=== PATIENT | female | born 1965 | race Caucasian/White ===

== ENCOUNTER 2024-12-13 11:09 | Outpatient (AMB) | payer MEDICARE, MEDICAID, SELFPAY ==
--- NOTE | 2024-12-13 11:14 | MHC.OFFVIS ---
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 She has generalized tonic-clonic seizures, often preceded by an aura characterized by a feeling rosa to moving sand or double vision. Recently, her seizure frequency has increased, despite stable medication and therapy, occurring during sleep and occasionally while awake. No history of head injury or family history of epilepsy, and no history of drug abuse Surgical intervention in 1996 at [facility] resulted in a significant reduction in seizure frequency. A VNS device implanted in 1999, with the most recent replacement in 2018, further reduced her seizures. She manages her epilepsy with 200 mg of Lamotrigine in the morning and 400 mg at night, having tried several anticonvulsants in the past. She is also treated for insomnia with Zolpidem 10 mg at night, hypotension with Midodrine 5 mg, and hyperlipidemia with Atorvastatin 10 mg. Sleep apnea was diagnosed approximately ten years ago by a neurologist in [place]. Review of Systems Const Details: - Neurological: Reports seizures, aura prior to seizures, insomnia; denies headache. - Cardiovascular: Reports treated hypotension; denies chest pain, palpitations. - Respiratory: Denies dyspnea. - Gastrointestinal: Denies nausea. - Endocrine: Denies diabetes. - Sleep: Reports insomnia, diagnosed with sleep apnea. - Musculoskeletal: Denies weakness or gait disturbances. Physical Exam Neuro Other: Mental Status: Alert and oriented to person, place, and time. Normal attention. Normal spontaneous speech, fluency, and comprehension. No obvious issues with mood and memory. Affect is appropriate. Cranial Nerves: CN II: Visual faustin full to confrontation, visual acuity intact. CN III, IV, : Pupils equal, round, reactive to light and accommodation. Extraocular movements are normal. CN V: Facial sensation is normal. CN VII: Facial movements symmetrical. CN VIII: Hearing intact to bedside conversation is normal. CN IX, X: Palate elevates symmetrically. CN XI: Shoulder shrug and head turn symmetrical. CN XII: Tongue midline without atrophy or fasciculations. Motor: Bulk and tone normal in all extremities. No significant muscle weakness in arms and legs. No drift. Reflexes: Deep tendon reflexes 2+ and symmetric. Plantar response down-going bilaterally. Coordination: [id number] and aeka-[id number] testing normal. No dysmetria. Gait and Station: No obvious gait abnormality. No ataxia or instability. Extrapyramidal: Full facial expressions and blinking. No rigidity. Movements are appropriate with no tremor or abnormality. Speech: Normal; no dysarthria or tremor. Assessment & Plan Assessment & Plan (1) Epilepsy: Comment: Meds tried: Lamotrigine, Dilantin, phenobarbital, Depakote, Tegretal Epilepsy surgery in 1996 at [facility] VNS placed in [place] in 1999, last replaced in 2018 in [place], [place] Code(s): G40.909 - Epilepsy, unspecified, not intractable, without status epilepticus Category: Medical Qualifiers: Epilepsy type: other generalized Intractability: intractable Status epilepticus: without status epilepticus Qualified Code(s): G40.419 - Other generalized epilepsy and epileptic syndromes, intractable, without status epilepticus (2) Status post VNS (vagus nerve stimulator) placement: Code(s): Z96.89 - Presence of other specified functional implants Category: Surgical (3) Insomnia: Code(s): G47.00 - Insomnia, unspecified Category: Medical Qualifiers: Insomnia type: due to medical condition Qualified Code(s): G47.01 - Insomnia due to medical condition Plan Impression: 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 She had epilepsy surgery at [facility] and later VNS placement. Now seizures were relatively better controlled happening sporidically but not daily or weekly. VNS was checked and found to be working. Parameters adjusted. Rec: a: MRI brain WO b: EEG c: Lamotrigine 200mg one in am and two at night d: Zolpidem 10mg one at bedtime PRN e: Xcopri 50mg one at bedtime f: VNS was adjusted to more frequent stimulation, every 30 sec Orders: Orders MR head/brain w con Today G40.419 - Other generalized epilepsy and epileptic syndromes, intractable, without status epilepticus Complete Blood Count Auto Diff Today G40.419 - Other generalized epilepsy and epileptic syndromes, intractable, without status epilepticus Basic Metabolic Panel Today G40.419 - Other generalized epilepsy and epileptic syndromes, intractable, without status epilepticus Liver Panel Today G40.419 - Other generalized epilepsy and epileptic syndromes, intractable, without status epilepticus Lamotrigine Lamictal Today G40.419 - Other generalized epilepsy and epileptic syndromes, intractable, without status epilepticus EEG electroencephalogram Today G40.419 - Other generalized epilepsy and epileptic syndromes, intractable, without status epilepticus Erythrocyte Sedimentation Rate Today G40.419 - Other generalized epilepsy and epileptic syndromes, intractable, without status epilepticus Medications: New cenobamate (Xcopri) administer weeks 5 and 6 of therapy 50 mg PO ONCE 30 tabs 2RF 30 days lamotrigine ER 200 mg orally one in am and two at night; 270 tabs 0RF zolpidem 10 mg PO BEDTIME 90 tabs 0RF Insomnia Coding Level of Care Code New Pt Level 5 (56480) Diagnoses Other generalized epilepsy, intractable, without status epilepticus G40.419 Epilepsy type: other generalized Intractability: intractable Status epilepticus: without status epilepticus Status post VNS (vagus nerve stimulator) placement Z96.89 Insomnia due to medical condition G47.01 Insomnia type: due to medical condition
--- OUTSIDE RECORDS SUMMARY | 2024-12-13 12:46 | XMS_ITS | Clinical Summary ---
Author Organization [address] [facility] Address [address] [place] [phone] Phone Care Team Providers Care Blast Hole Driller Name Role Phone Eloise Huynha Primary Care Provider [phone] Allergies No known active allergies Medications ondansetron (ZOFRAN) 4 mg tablet TAKE 1 TABLET BY MOUTH THREE TIMES DAILY NEEDED *NEW PRESCRIPTION REQUEST* 270 tablet 11 11/19/19 25 Active atorvastatin (LIPITOR) 40 mg tablet TAKE 1 TABLET BY MOUTH EVERY DAY *NEW PRESCRIPTION REQUEST* 90 tablet 1 11/19/19 25 Active zolpidem (AMBIEN) 10 mg tablet Take 1 tablet (10 mg total) by mouth at bedtime as needed for sleep. Patient scheduling appointment with psychiatry will not refill the medication again refilling 1 more prescription for withdrawal Max Daily Amount: 10 mg 30 tablet 11/25/19 25 Active lamoTRIgine (LaMICtal) 200 mg tablet TAKE 1 TABLET BY MOUTH EVERY MORNING & TAKE 2 TABLETS EVERY NIGHT AT BEDTIME *NEW PRESCRIPTION REQUEST* 270 tablet 11 11/26/19 25 Active midodrine (PROAMATINE) 5 mg tablet Take 1 tablet (5 mg total) by mouth 3 (three) times a day before meals. 90 each 1 11/29/19 25 025 Active triamcinolone (KENALOG) 0.1 % ointment Apply topically 2 (two) times a day if needed for irritation or rash. 30 g 11/29/19 25 025 Active midodrine (PROAMATINE) 5 mg tablet Take 1 tablet (5 mg total) by mouth. 01/04/20 025 Discontinued(R eorder) lamoTRIgine (LaMICtal) 200 mg tablet Take 1 tablet in the morning and 2 tablets at night 90 tablet 1 07/23/19 025 Discontinued(R eorder) ondansetron (ZOFRAN) 4 mg tablet Take 1 tablet (4 mg total) by mouth. 08/26/19 025 Discontinued zolpidem (AMBIEN) 10 mg tablet Take 1 tablet (10 mg total) by mouth at bedtime as needed for sleep. Max Daily Amount: 10 mg 30 tablet 1 09/28/19 025 Discontinued(R eorder) amitriptyline (ELAVIL) 10 mg tablet Take 1 tablet (10 mg total) by mouth at bedtime. 30 each 09/28/19 025 Discontinued atorvastatin (LIPITOR) 40 mg tablet TAKE 1 TABLET(40 MG) BY MOUTH 1 TIME EACH DAY IN THE EVENING 30 tablet 3 10/05/19 025 Discontinued SUMAtriptan (IMITREX) 50 mg tablet Take 1 tablet (50 mg total) by mouth 1 (one) time if needed for migraine (may repeat x1) for up to 54 doses. May repeat dose once in 2 hours if no relief. Do not exceed 2 doses in 24 hours. 9 tablet 5 11/09/19 025 Discontinued lamoTRIgine (LaMICtal) 200 mg tablet Take 1 tablet in the morning and 2 tablets at night 90 tablet 1 11/16/19 025 Discontinued(R eorder) lamoTRIgine (LaMICtal) 200 mg tablet Take 1 tablet in the morning and 2 tablets at night 90 tablet 1 11/23/19 025 Discontinued SUMAtriptan (IMITREX) 50 mg tablet TAKE 1 TABLET BY MOUTH AT ONSET OF HEADACHE NEEDED. MAY REPEAT AFTER 2 HOURS IF NEEDED. MAX 2 DOSES IN 24 HOURS *NEW PRESCRIPTION REQUEST* 48 tablet 11/26/19 025 Discontinued amitriptyline (ELAVIL) 10 mg tablet TAKE 1 TABLET BY MOUTH EVERY NIGHT AT BEDTIME *NEW PRESCRIPTION REQUEST* 90 tablet 11 11/26/19 25 025 Discontinued Active Problems Problem Noted Date Diagnosed Date Migraine 11/25/2024 History of Clostridioides difficile colitis 07/12 HLD (hyperlipidemia) IBS (irritable bowel syndrome) Insomnia Low blood pressure [place] [place] [facility] [place] Encounters Date Type Department Care Team Description 11/28/2024 3:00 PM EDT [facility] [phone] Christopher Pink PA Other specified hypotension (Primary Dx); Mixed hyperlipidemia; [place]izure [place] [place] [facility] [place] Insomnia, unspecified type; Other migraine without status migrainosus, intractable 11/01/2024 Telephone [facility] [address] [phone] Ezio Dominguez MD 10/10/2024 Telephone Internal Medicine - [address] [phone] Brionna Huynh, 10/10/2024 Telephone Internal Medicine - [address] [phone] Brionna Huynh, 09/27/2024 10:00 AM EDT Consult [facility] [address] [phone] Ezio Dominguez MD Seizure [place] [place] [facility] [place] from Last 3 Months Surgical History Surgery Date Site/Laterality Comments VAGUS NERVE STIMULATOR INSERTION HYSTERECTOMY BRAIN SURGERY temperal lobectomy Medical History Medical History Date Comments HLD (hyperlipidemia) Seizure [place] [place] [facility] [place] Low blood pressure Nausea IBS (irritable bowel syndrome) Insomnia Family History Medical History Relation Name Comments Prostate cancer Father Relation Name Status Comments Father Social History Tobacco Use Types Packs/Day Years Used Date Smoking Tobacco: Every Day Cigarettes Smokeless Tobacco: Never Tobacco Cessation:Ready to Q uit: Not Asked; Counseling Given: Not Answered Comments No Sex and Gender Information Value Date Recorded Sex Assigned at Not on file Legal Sex Female 10:46 AM EST Gender Identity Not on file Sexual Orientation Not on file Obstetrics History Last Filed Vital Signs Vital Sign Reading Time Taken Comments Blood Pressure 98/50 11/28/2024 2:28 PM EDT Pulse 64 11/28/2024 2:28 PM EDT Temperature 36.2 C (97.2 F) 09/27/2024 9:56 AM EDT Respiratory Rate 16 11/28/2024 2:28 PM EDT Oxygen Saturation 95% 09/27/2024 9:56 AM EDT Inhaled Oxygen Concentration - - Weight 58.5 kg (129 lb) 11/28/2024 2:28 PM EDT Height 162.6 cm (5' 4 ) 09/27/2024 9:56 AM EDT Body Mass Index 22.14 09/27/2024 9:56 AM EDT Plan of Treatment Health Maintenance Due Date Last Done Comments Breast Cancer Screening 1965 DTaP,Tdap,and Td Vaccines (1 - Tdap) 09/21/1986 Hepatitis B Vaccines (1 of 3 - 19+ 3-dose series) 09/21/1986 Pneumococcal Vaccine: 50+ Ye ars (1 of 2 - PCV) 09/21/1986 Cervical Cancer Screening: P ap Smear 09/21/1988 Zoster Vaccines (1 of 2) 09/21/2017 Depression Screening 04/13/2024 Colorectal Cancer Screening: Colonoscopy 05/02/2024 HIV Screening 05/02/2024 Hepatitis C Screening 05/02/2024 Medicare Annual Wellness Visit 05/02/2024 Social Influencers of Health Screening 05/02/2024 COVID-19 Vaccine (1 - 2023-2 5 season) 2024 Influenza Vaccine (#1) 2024 Cholesterol Screening (Lipid Panel) 09/02/2029 09/02/2024 HIB Vaccines Aged Out No longer eligi ble based on patient's age to complete this topic HPV Vaccines Aged Out No longer eligi ble based on patient's age to complete this topic Hepatitis A Vaccines Aged Out No long er eligible based on patient's age to complete this topic IPV Vaccines Aged Out No longer eligi ble based on patient's age to complete this topic MMR Vaccines Aged Out No longer eligi ble based on patient's age to complete this topic Meningococcal ACWY Vaccine Aged Out N o longer eligible based on patient's age to complete this topic Meningococcal B Vaccine Aged Out No l onger eligible based on patient's age to complete this topic RSV Immunization Patients Un scot 20 months Aged Out No longer eligible b ased on patient's age to complete this topic Varicella Vaccines Aged Out No longer eligible based on patient's age to complete this topic Procedures Procedure Name Priority Date/Time Associated Diagnosis Comments CBC WITH AUTO DIFFERENTIAL Routine 09/27/2024 10:52 AM EDT Seizure ([facility]/HCC V24, CMS/HCC V28) LAMOTRIGINE LEVEL Routine 09/27/2024 10: 52 AM EDT Seizure ([facility]/HCC V24, [facility] V28) HEPATIC FUNCTION PANEL Routine 09/27/2024 10:52 AM EDT Seizure ([facility]/HCC V24, [facility] V28) CBC AND DIFFERENTIAL Routine 09/27/2024 10:52 AM EDT Seizure ([facility]/HCC V24, CMS/HCC V28) BUN Routine 09/27/2024 10:52 AM EDT Seizure ([facility]/HCC V24, CMS/HCC V28) CREATININE, SERUM Routine 09/27/2024 10: 52 AM EDT Seizure ([facility] V24, [facility] V28) LIPID PANEL WITH REFLEX TO DIRECT LDL Routine 09/02/2024 10:35 AM EDT Hyperlipidemia, unspecified hyperlipidemia type from Last 3 Months or Most Recently Relevant to Health Maintenance Results * (ABNORMAL) CBC auto differential (09/27/2024 10:52 AM EDT) [facility] Signature WBC 6.3 4.8 - 10.8 K/mcL LAB HEMETOLOGY METHOD 09/27/2024 2:06 PM EDT [facility] RBC 4.40 3.80 - 4.80 M/mcL LAB HEMETOLOGY METHOD 09/27/2024 2:06 PM EDT [facility] Hemoglobin 13.6 11.5 - 16.0 g/dL LAB HEMETOLOGY METHOD 09/27/2024 2:06 PM [facility] Hematocrit 42.9 35.0 - 47.0 % LAB HEMETOLOGY METHOD [facility]24 [facility] MCV 97.9 79.0 - 98.0 FL LAB HEMETOLOGY METHOD 09/27/2024 2:06 PM [facility] MCH 31.1 27.0 - 32.0 pcg LAB HEMETOLOGY METHOD 09/27/2024 2:06 PM [facility] MCHC 31.7(L) 32.0 - 37.0 g/dL LAB HEMETOLOGY METHOD 09/27/2024 2:06 PM [facility] RDW 12.9 11.0 - 15.0 % LAB HEMETOLOGY METHOD 09/27/2024 2:06 PM [facility] Platelets 215 130 - 400 K/mcL LAB HEMETOLOGY METHOD 09/27/2024 2:06 PM [facility] MPV 11.0 7.0 - 11.0 FL LAB HEMETOLOGY METHOD 09/27[facility]2024 [facility] NRBC 0.0 <1.0 % LAB HEMETOLOGY METHOD 09/27/2024 2:06 PM [facility] NRBC Absolute 0.00 <0.10 K/mcL LAB HEMETOLOGY METHOD 09/27[facility]2024 [facility] Neutrophils Relative 62.9 % LAB HEMETOLOGY METHOD 09/27/2024 2:06 PM [facility] Lymphocytes Relative 29.5 % LAB HEMETOLOGY METHOD 09/27/2024 2:06 PM EDT [facility] Monocytes Relative 6.0 % LAB HEMETOLOGY METHOD 09/27/2024 2:06 PM EDT [facility] Eosinophils Relative 0.6 % LAB HEMETOLOGY METHOD 09/27/2024 2:06 PM [facility] Basophils Relative 0.5 % LAB HEMETOLOGY METHOD 09/27[facility]2024 [facility] Immature Granulocytes Relative 0.5 % LAB HEMETOLOGY METHOD 09/27/2024 2:06 PM [facility] Neutrophils Absolute 3.97 1.50 - 7.00 K/mcL LAB HEMETOLOGY METHOD 09/27/2024 2:06 PM [facility] Lymphocytes Absolute 1.86 1.00 - 5.00 K/mcL LAB HEMETOLOGY METHOD 09/27/2024 2:06 PM [facility] Monocytes Absolute 0.38 0.20 - 1.00 K/mcL LAB HEMETOLOGY METHOD 09/27/2024 2:06 PM [facility] Eosinophils Absolute 0.04 0.00 - 0.50 K/mcL LAB HEMETOLOGY METHOD 09/27/2024 2:06 PM [facility] Basophils Absolute 0.03 0.00 - 0.20 K/mcL LAB HEMETOLOGY METHOD 09/27/2024 2:06 PM [facility] Immature Granulocytes Absolute 0.03 0.00 - 0.03 K/mcL LAB HEMETOLOGY METHOD 09/27/2024 2:06 PM [facility] Blood Venous blood specimen / Unknown Venipuncture / Unknown 09/27/2024 10:52 AM EDT 09/27/2024 10:52 AM EDT Ezio Dominguez MD LAB BLOOD ORDERABLES Fin al Result Performing Organization Address City/State/[facility] Co de Phone Number [facility] [address] [place] [address], * Creatinine (09/27/2024 10:52 AM EDT) Creatinine 0.88 0.50 - 1.10 mg/dL LAB CHEMISTRY METHOD 09/27/2024 2:52 PM EDT [facility] eGFR 77 >=60 mL/min/1. 73m2 LAB CHEMISTRY METHOD 09/27/2024 2:52 PM EDT [facility] Comment:Calculation based on the Chronic Kidney Disease Epidemiology Collaboration (CKD-EPI) equation refit without adjustment for race. Blood Venous blood specimen / Unknown Venipuncture / Unknown 09/27/2024 10:52 AM EDT 09/27/2024 10:52 AM EDT Ezio Dominguez MD LAB BLOOD ORDERABLES Fin al Result Performing Organization Address [facility] Co de Phone Number [facility] [address] [place] [address], * Lamotrigine level (09/27/2024 10:52 AM EDT) Lamotrigine (Lamictal) Level 13.5 2.0 - 15.0 ug/mL 09/30/2024 10:13 AM EDT [facility] Comment: Lamotrigine toxic level: >20 ug/mL The reference range is not well established. It may be as wide as 1 - 20 ug/mL. If applicable, any drug confirmation testing reported here was developed and the performance characteristics determined by [facility]. This confirmation testing has not been cleared or approved by the FDA. The laboratory is regulated under CLIA as qualified to perform high-complexity testing. This test is used for patient testing purposes. It should not be regarded as investigational or for research. Test performed at [facility], [address], [place] [address] Sandra Campos MD, PhD - Marine Mammal Trainer Blood Venous blood specimen / Unknown Venipuncture / Unknown 09/27/2024 10:52 AM EDT 09/27/2024 10:52 AM EDT Ezio Dominguez MD LAB BLOOD ORDERABLES Fin al Result [facility] [address] [place] [address] * BUN (09/27/2024 10:52 AM EDT) BUN 10 5 - 25 mg/dL LAB CHEMISTRY METHOD 09/27/2024 2:52 PM EDT [facility] Blood Venous blood specimen / Unknown Venipuncture / Unknown 09/27/2024 10:52 AM EDT 09/27/2024 10:52 AM EDT Ezio Dominguez MD LAB BLOOD ORDERABLES Fin al Result Performing Organization Address City/[facility]/ZIP Co de Phone Number [facility] [address] [place] [address], [place] [phone] * (ABNORMAL) Hepatic function panel (09/27/2024 10:52 AM EDT) Total Protein 7.3 6.0 - 8.0 g/dL LAB CHEMISTRY METHOD 09/27/2024 2:52 PM EDT [facility] Albumin 4.1 3.2 - 5.0 g/dL LAB CHEMISTRY METHOD 09/27/2024 2:52 PM EDT [facility] Total Bilirubin 0.5 0.0 - 1.4 mg/dL LAB CHEMISTRY METHOD 09/27/2024 2:52 PM EDT [facility] Bilirubin, Direct 0.2 0.0 - 0.3 mg/dL LAB CHEMISTRY METHOD 09/27/2024 2:52 PM EDT [facility] Bilirubin, Indirect 0.3 0.0 - 1.1 mg/dL LAB CHEMISTRY METHOD 09/27/2024 2:52 PM EDT [facility] ALT (SGPT) 22 10 - 60 unit/L LAB CHEMISTRY METHOD 09/27/2024 2:52 PM EDT [facility] AST (SGOT) 20 10 - 42 unit/L LAB CHEMISTRY METHOD 09/27/2024 2:52 PM EDT [facility] Alkaline Phosphatase 140(H) 42 - 121 unit/L LAB CHEMISTRY METHOD 09/27/2024 2:52 PM EDT [facility] Blood Venous blood specimen / Unknown Venipuncture / Unknown 09/27/2024 10:52 AM EDT 09/27/2024 10:52 AM EDT Ezio Dominguez MD LAB BLOOD ORDERABLES Fin al Result [facility] [address] [place] [address], [place] [phone] * (ABNORMAL) Lipid panel with reflex to direct LDL (09/02/2024 10:35 AM EDT) Cholesterol 208(H) 0 - 200 mg/dL LAB CHEMISTRY METHOD 09/02/2024 4:32 PM EDT [facility] Triglycerides 90 0 - 150 mg/dL LAB CHEMISTRY METHOD 09/02/2024 4:32 PM EDT [facility] HDL 68 >=40 mg/dL LAB CHEMISTRY METHOD 09/02/2024 4:32 PM EDT [facility] LDL Calculated 122(H) 0 - 100 mg/dL LAB CHEMISTRY METHOD 09/02/2024 4:32 PM T [facility] VLDL Cholesterol Buddy 18 mg/dL LAB CHEMISTRY METHOD 09/02/2024 4:32 PM EDT [facility] Non HDL Chol. (LDL+VLDL) 140 <145 mg/dL LAB CHEMISTRY METHOD 09/02/2024 4:32 PM EDT [facility] Chol/HDL Ratio 3.1 0.0 - 4.4 LAB CHEMISTRY METHOD 09/02/2024 4:32 PM EDT [facility] Blood Venous blood specimen / Unknown Venipuncture / Unknown 09/02/2024 10:35 AM EDT 09/02/2024 10:35 AM EDT Brionna Huynh DO LAB BLOOD ORDERABLES Final Res ult [facility] [address] [place] [address], from Last 3 Months or Most Recently Relevant to Health Maintenance Insurance MEDICAID - [place] [employer] MEDICARE Care Teams Blast Hole Driller Relationship Specialty Start Date End Date Brionna Huynh DO [address] [place] [address] PCP - General Internal Medicine 05/02/24
== END 2024-12-13 12:03 | disposition home or self-care (01) ==
LOC: HO.HSM 11:12
PROVIDERS: Visit Provider Psychiatry & Neurology Neurology
DX: G40.419 Other generalized epilepsy and epileptic syndromes, intractable, without status epilepticus (principal); Z96.82 Presence of neurostimulator; G47.01 Insomnia due to medical condition
CPT/HCPCS: 95976; 99204

== ENCOUNTER 2024-12-13 11:09 | Outpatient (REF) | payer MEDICARE, MEDICAID, SELFPAY ==
[2024-12-13 12:38] LABS: MANUAL DIFF FLAG NO
[2024-12-13 13:47] LABS: Hematocrit 43.1 % (37.0-47.0); Hemoglobin 14.0 g/dl (12.0-16.0); Imm Gran Abs Auto 0.02 X10*3/uL (0.00-0.03); Imm Gran Pct Auto 0.3 % (0.0-0.4); Lymphocytes Absolute Auto 1.9 X10*3/uL (1.2-4.9); Mean Corpuscular HGB Conc 32.5 g/dl (31.0-35.0); Mean Corpuscular Hemoglobin 31.2 pg (27.0-33.0); Mean Corpuscular Volume 96.0 fL (80.0-98.0); NRBC Abs Auto 0.000 X10*3/uL (0.0-0.012); NRBC Pct Auto 0.0 /100WBC (0.0-0.2); Platelet Count 186 X10*3/uL (160-400); Red Blood Count 4.49 X10*6/uL (4.20-5.50); White Blood Count 6.2 X10*3/uL (4.8-10.8)
[2024-12-13 14:50] LABS: Alanine Aminotransferase 20 U/L (0-31); Albumin Level 4.7 g/dL (3.5-5.0); Alkaline Phosphatase 130 U/L (39-117); Anion Gap 14 (12-20); Aspartate Amino Transferase 27 U/L (5-31); Blood Urea Nitrogen 13 mg/dL (9-16); Calcium 9.8 mg/dL (8.4-10.2); Carbon Dioxide 25 mmol/L (22-29); Chloride 110 mmol/L (96-108); Estimated Glomerular Filt Rate > 60; Potassium 4.2 mmol/L (3.3-5.1); Sodium 145 mmol/L (135-145); Total Protein 7.5 g/dL (6.5-8.0)
[2024-12-17 07:34] LABS: Lamotrigine Lamictal 13.9 mcg/mL (2.5-15.0)
== END 2024-12-13 11:10 | disposition home or self-care (01) ==
LOC: HO.LAB 11:09
PROVIDERS: PCP Physician Assistant; Visit Provider Psychiatry & Neurology Neurology
DX: G40.419 Other generalized epilepsy and epileptic syndromes, intractable, without status epilepticus (principal); G47.01 Insomnia due to medical condition; Z76.0 Encounter for issue of repeat prescription; Z96.89 Presence of other specified functional implants; Z79.899 Other long term (current) drug therapy
CPT/HCPCS: 36415; 80048; 80076; 80175; 85025; 85652; 95976; 99202

== ENCOUNTER 2024-12-23 12:22 | Outpatient (REF) | payer MEDICARE, MEDICAID, SELFPAY ==
--- NOTE | 2024-12-23 14:28 | EEG_ITS ---
Room performed: 402 Reason: seizures Medications: cenobamate, lamotrigine, zolpidem, xcopri History: Patient diagnosed with epilepsy at 13 months after typhoid fever. Patient was seizure free until 1996 when she had a head injury. In 1999 patient had a VNS device which helped with seizure activity till recently. Patient reports having frequent seizures, three within the last week. Previously seizures were tonic-clonic in nature but recently patient is aware of what is happening during them. Bogger Operator Comments Photic Stimulation: completed Hyperventilation: performed Behavioral state: pleasant, cooperative State of consciousness: awake and sleep Skull defect: none Sedation: no Handedness: right Duration of study: 32 mins 4 secs Description: This is a 16 channel EEG with an EKG lead. Patient is reported awake and asleep during the tracing. Background EEG rhythm is mixed theta beta with somewhat asymmetric bihemispheric EEG, with left hemispheric leads showing lower amplitude and relatively higher amplitude in right hemispheric leads. Intermittently right temporal area sharp waves and sharp and slow waves were noted. Cardiac lead did not reveal any significant abnormality. Photic stimulation did not produce any significant driving. Hyperventilation was unremarkable. Impression: Abnormal EEG suggestive of right hemispheric probably temporal area, seizure focus. MTDD
== END 2024-12-23 12:23 | disposition home or self-care (01) ==
LOC: HO.NEURO 12:22
PROVIDERS: PCP Physician Assistant; Visit Provider Psychiatry & Neurology Neurology
DX: G40.419 Other generalized epilepsy and epileptic syndromes, intractable, without status epilepticus (principal); R94.01 Abnormal electroencephalogram [EEG]
CPT/HCPCS: 95816

== ENCOUNTER → 2024-12-23 14:28 | Outpatient (BNV) | payer MEDICARE, MEDICAID, SELFPAY | PROVIDERS: PCP Physician Assistant; Visit Provider Psychiatry & Neurology Neurology | DX: G40.419 Other generalized epilepsy and epileptic syndromes, intractable, without status epilepticus (principal) | CPT/HCPCS: 95819 ==

== ENCOUNTER 2025-02-14 14:50 | Outpatient (AMB) | payer MEDICARE, MEDICAID, SELFPAY ==
--- NOTE | 2025-02-14 14:50 | A.OFFVIS_ITS ---
Intake Visit Reasons: 3 sz in the last few days HPI Comments Details: 59-year-old female presenting with seizure management and medication refill concerns. 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 She has generalized tonic-clonic seizures, often preceded by an aura characterized by a feeling rosa to moving sand or double vision. Recently, her seizure frequency has increased, despite stable medication and therapy, occurring during sleep and occasionally while awake. No history of head injury or family history of epilepsy, and no history of drug abuse Surgical intervention in 1996 at [facility] resulted in a significant reduct ion in seizure frequency. A VNS device implanted in 1999, with the most recent replacement in 2018, further reduced her seizures. She manages her epilepsy with 200 mg of Lamotrigine in the morning and 400 mg at night, having tried several anticonvulsants in the past. She is also treated for insomnia with Zolpidem 10 mg at night, and hypotension with Midodrine 5 mg. Sleep apnea was diagnosed approximately ten years ago by a neurologist in [place]. Last time 50 mg of Xcopri was added. She said that it worked out very well and she did not have any seizure until she ran out of this medicine and 3 days after she had 3. Now she was feeling okay. Also, she could not get extended release lamotrigine and was utilizing regular lamotrigine 200 mg 3 a day. Review of Systems Narrative - Neurological: Reports recurrent seizures in absence of medication. - Sensory/Motor: Denies significant sensory or motor changes. - Gastrointestinal: Denies nausea unless taking full 200 mg tablets, which causes double vision and nausea. Physical Exam Neuro Other: Mental Status: Alert and oriented to person, place, and time. Normal attention. Normal spontaneous speech, fluency, and comprehension. No obvious issues with mood and memory. Affect is appropriate. Cranial Nerves: CN II: Visual faustin full to confrontation, visual acuity intact. CN III, IV, : Pupils equal, round, reactive to light and accommodation. Extraocular movements are normal. CN V: Facial sensation is normal. CN VII: Facial movements symmetrical. CN VIII: Hearing intact to bedside conversation is normal. CN IX, X: Palate elevates symmetrically. CN XI: Shoulder shrug and head turn symmetrical. CN XII: Tongue midline without atrophy or fasciculations. Motor: Bulk and tone normal in all extremities. No significant muscle weakness in arms and legs. No drift. Reflexes: Deep tendon reflexes 2+ and symmetric. Plantar response down-going bilaterally. Coordination: Npmnvs-pa-ttyg and vzvc-sb-pneg testing normal. No dysmetria. Gait and Station: No obvious gait abnormality. No ataxia or instability. Sensory: Intact to light touch, pinprick, and vibration. Romberg is negative. Extrapyramidal: Full facial expressions and blinking. No rigidity. Movements are appropriate with no tremor or abnormality. Speech: Normal; no dysarthria or tremor. Assessment & Plan Assessment & Plan (1) Epilepsy: Comment: Meds tried: Lamotrigine, Dilantin, phenobarbital, Depakote, [place] [facility] [place]: Oxana velásquez Epilepsy surgery in [address] [facility] VNS placed in [place] in 1999, last replaced in 2017 in [place], [place] Code(s): G40.909 - Epilepsy, unspecified, not intractable, without status epilepticus Category: Medical Qualifiers: Epilepsy type: other generalized Intractability: intractable Status epilepticus: without status epilepticus Qualified Code(s): G40.419 - Other gen eralized epilepsy and epileptic syndromes, intractable, without status epilepticus (2) Status post VNS (vagus nerve stimulator) placement: Code(s): Z96.89 - Presence of other specified functional implants Category: Surgical (3) Insomnia: Code(s): G47.00 - Insomnia, unspecified Category: Medical Qualifiers: Insomnia type: due to medical condition Qualified Code(s): G47.01 - Insomnia due to medical condition Plan Impression: Chronic intractable epilepsy s/p epilepsy surgery and s/p VNS Rec: a: Lamotigine 200mg one in am and two at night b: XCopri 50mg one at bedtime c: VNS readjusted: Output 2.5/Freq 20/PW 250/Off time 30sec/On time 30 sec (CPT 44778) Medications: Changed From cenobamate (Xcopri) administer weeks 5 and 6 of therapy 50 mg PO ONCE 30 days 30 tabs 2RF To cenobamate (Xcopri) administer weeks 5 and 6 of therapy 50 mg PO ONCE 90 tabs 1RF 90 days Coding Level of Care Code Est Pt Level 4 (49134) Complex EM visit Add On G2211 Diagnoses Other generalized epilepsy, intractable, without status epilepticus G40.419 Epilepsy type: other generalized Intractability: intractable Status epilepticus: without status epilepticus Status post VNS (vagus nerve stimulator) placement Z96.89 Insomnia due to medical condition G47.01 Insomnia type: due to medical condition Comment VNS adjusted
--- OUTSIDE RECORDS SUMMARY | 2025-02-14 17:54 | XMS_ITS | Patient Health Record ---
Author Organization [facility] Urgent Care - [facility] Address [address] [place] [address] Support Name Relationship Address Phone [place], Shantal Guarantor Unknown Reason For Referral No Information Plan Of Treatment No Information Insurance Providers Payer Name Payer Address Payer Phone Subscriber Number Group Number Insured Name Patient Relationship to Insured Coverage Start Date Coverage End Date [employer] Medicare [address] [address] [place] [address] [id number] Shantal García Self - patient is the insured COVID HRSA Uninsured [facility] CARES Act Provider Relief Fund [address] [address] [place] [address] Shantal García Self - patient is the insured
--- OUTSIDE RECORDS SUMMARY | 2025-02-14 17:54 | XMS_ITS | Patient Health Record ---
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 Name Role Phone Immanuel CARRASCO, [place] Primary Care Provider [phone] Reason For Referral No Information Problems Problem Type SNOMED Code ICD Code Onset Dates Problem Status W/U Status Risk Notes Problem Acid reflux (779115660) Acid reflux (K21.9) Active confirmed Problem Acute diarrhea (369129561) Acute diarrhea (R19.7) Active confirmed Problem Colon spasm (22348531) Colon spasm (K58.9) Active confirmed Problem Hematochezia (298125422) Black stool (K92.1) Active confirmed Problem Peripheral vascular disease (989108874) Angiopathy, peripheral (I73.9) Active confirmed Problem Hyperlipoproteinemia (5694555) Acquired hyperlipoproteinemia (E78.5) Active confirmed Problem Chronic hypokalemia (21230633) Chronic hypokalemia (E87.6) Active confirmed Problem Acute confusional migraine (76294969) Acute confusional migraine (G43.909) Active confirmed Problem History of cerebrovascular accident without residual deficits (487966152) Arterial ischemic stroke, TONYA (anterior cerebrl artry) rght rmot, rslv (Z86.73) Active confirmed Plan Of Treatment No Information Insurance Providers Payer Name Payer Address Payer Phone Subscriber Number Group Number Insured Name Patient Relationship to Insured Coverage Start Date Coverage End Date [employer] FFS [address] [address] [place], [place] [id number] [phone] [id number] [facility] Self - patient is the insured MEDICA[employer] [address] [place], [place] [id number] [phone] [id number] [facility] Self - patient is the insured
--- OUTSIDE RECORDS SUMMARY | 2025-02-14 17:54 | XMS_ITS | Clinical Summary ---
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 30 g 11/29/19 25 025 Active midodrine (PROAMATINE) 5 mg tablet TAKE 1 TABLET BY MOUTH 3 TIMES DAILY BEFORE MEALS 90 tablet 3 01/31/20 25 Active midodrine (PROAMATINE) 5 mg tablet Take 1 tablet (5 mg total) by mouth 3 (three) times a day before meals. 90 each 1 11/29/19 25 025 Discontinued Active Problems Problem Noted Date Diagnosed Date Migraine 11/25/2024 History of Clostridioides difficile colitis 07/12 HLD (hyperlipidemia) IBS (irritable bowel syndrome) Insomnia Low blood pressure Seizure ([facility] V24, [facility] V28) Encounters Date Type Department Care Team Description 11/28/2024 3:00 PM EDT Office Visit Internal Medicine - [facility] [address] [place] [address] Christopher Pink PA Other specified hypotension (Primary Dx); Mixed hyperlipidemia; Seizure ([facility] V24, [facility] V28); Insomnia, unspecified type; Other migraine without status migrainosus, intractable from Last 3 Months Surgical History Surgery Date Site/Laterality Comments VAGUS NERVE STIMULATOR INSERTION HYSTERECTOMY BRAIN SURGERY temperal lobectomy Medical History Medical History Date Comments HLD (hyperlipidemia) Seizure ([facility] V24, [facility] V28) Low blood pressure Nausea IBS (irritable [...] Last Done Comments Breast Cancer Screening 1965 Colorectal Cancer Screening: Colonoscopy 1967 DTaP,Tdap,and Td Vaccines (1 - Tdap) 09/21/1986 Hepatitis B Vaccines (1 of 3 - 19+ 3-dose series) 09/21/1986 Pneumococcal Vaccine: 50+ Ye ars (1 of 2 - PCV) 09/21/1986 Cervical Cancer Screening: P ap Smear 09/21/1988 Zoster Vaccines (1 of 2) 09/21/2017 Depression Screening 04/13/2024 HIV Screening 05/02/2024 Hepatitis C Screening 05/02/2024 Medicare Annual Wellness Visit 05/02/2024 Social Influencers of Health Screening 05/02/2024 COVID-19 Vaccine (1 - 2023-2 5 season) 2024 Influenza Vaccine (#1) 2024 Cholesterol Screening (Lipid Panel) 09/02/2029 09/02/2024 RSV Immunization Adult Patie nts (1 - 1-dose 75+ series) 09/21/2042 HIB Vaccines Aged Out No longer eligi [...] Procedure Name Priority Date/Time Associated Diagnosis Comments LIPID PANEL WITH REFLEX TO DIRECT LDL Routine 09/02/2024 10:35 AM EDT Hyperlipidemia, unspecified hyperlipidemia type from Last 3 Months or Most Recently Relevant to Health Maintenance Results * (ABNORMAL) Lipid panel with reflex to direct LDL (09/02/2024 10:35 AM EDT) Cholesterol 208(H) 0 - 200 mg/dL LAB CHEMISTRY METHOD 09/02/2024 4:32 PM EDT [facility] Triglycerides 90 0 - 150 mg/dL LAB CHEMISTRY METHOD 09/02/2024 4:32 PM EDT [facility] HDL 68 >=40 mg/dL LAB CHEMISTRY METHOD 09/02/2024 4:32 PM EDT [facility] LDL Calculated 122(H) 0 - 100 mg/dL LAB CHEMISTRY METHOD 09/02/2024 4:32 PM EDT [facility] VLDL Cholesterol Buddy 18 mg/dL LAB CHEMISTRY METHOD 09/02/2024 4:32 PM EDT [facility] Non HDL Chol. (LDL+VLDL) 140 <145 mg/dL LAB CHEMISTRY METHOD 09/02/2024 4:32 PM EDT [facility] Chol/HDL Ratio 3.1 0.0 - 4.4 LAB CHEMISTRY METHOD 09/02/2024 4:32 PM EDT [facility] Blood Venous blood specimen / Unknown Venipuncture / Unknown 09/02/2024 10:35 AM EDT 09/02/2024 10:35 AM EDT us Brionna Huynh DO LAB BLOOD ORDERABLES Final Res ult [facility] [address] [place] [address], from Last 3 Months or Most Recently Relevant to Health Maintenance Insurance MEDICAID - [place] [employer] MEDICARE Care Teams Petroleum Refining Equipment Operator Relationship Specialty Start Date End Date Brionna Huynh DO [address] [place] [address] PCP - General Internal Medicine 05/02/24
== END 2025-02-14 15:11 | disposition home or self-care (01) ==
LOC: HO.HSM 14:50
PROVIDERS: PCP Physician Assistant; Visit Provider Psychiatry & Neurology Neurology
DX: G40.419 Other generalized epilepsy and epileptic syndromes, intractable, without status epilepticus (principal); Z96.89 Presence of other specified functional implants; G47.01 Insomnia due to medical condition
CPT/HCPCS: 99214; G2211

== ENCOUNTER → 2025-02-14 14:50 | Outpatient (BNVA) | payer MEDICARE, MEDICAID, SELFPAY | PROVIDERS: PCP Physician Assistant; Visit Provider Psychiatry & Neurology Neurology | DX: G40.419 Other generalized epilepsy and epileptic syndromes, intractable, without status epilepticus (principal); G47.01 Insomnia due to medical condition; Z96.89 Presence of other specified functional implants | CPT/HCPCS: 99212 ==